=== PATIENT | male | born 1970 | race Caucasian/White ===

== ENCOUNTER 2023-10-31 01:05 | Emergency (ER) | payer MEDICAID ==
[~2023-10-31] VITALS: Ht 170.2 cm; Wt 87.0 kg
[2023-10-31 01:18] VITALS: BP 149/90; PULSE 94; RESP 16; TEMP 98.3; O2SAT 100
== END 2023-10-31 03:16 | disposition left against medical advice (07) ==
LOC: ER 01:05
DX: F10.239 Alcohol dependence with withdrawal, unspecified (principal); E11.9 Type 2 diabetes mellitus without complications; E78.00 Pure hypercholesterolemia, unspecified; I10 Essential (primary) hypertension; R56.9 Unspecified convulsions; Y90.9 Presence of alcohol in blood, level not specified
CPT/HCPCS: 99283

== ENCOUNTER 2024-06-18 08:16 | Inpatient (IN) | payer OTHER ==
[~2024-06-18] VITALS: Ht 170.2 cm; Wt 103.9 kg
[~2024-06-18 08:16] MED LIST: AMLO2.5T45 MT; ATOR10TA MT; METF-416 MT; N325 SL
[2024-06-18 08:21] VITALS: O2SAT 96
[2024-06-18] MEDS: SODIUM CHLORIDE 0.9% 1,000 ML IV ONE (10:15)
[2024-06-18 11:22] LABS: CHLORIDE 101 mEq/L (98-107); SODIUM 137 mEq/L (136-145)
[2024-06-18 11:24] LABS: CALCIUM 9.5 mg/dL (8.7-10.4); CARBON DIOXIDE 27 mEq/L (21-32)
[2024-06-18] MEDS: CHLORDIAZEPOXIDE 25MG CAPSULE PO ONE (11:25)
[2024-06-18 11:29] LABS: CREATININE 0.7 mg/dL (0.6-1.3); GLUCOSE 200 mg/dL (70-105)
[2024-06-18 11:31] LABS: ALANINE AMINOTRANSFERASE 51 IU/L (10-49); ALBUMIN 4.9 g/dL (3.2-4.8); ASPARTATE AMINOTRANSFERASE 40 IU/L (<34); BILIRUBIN TOTAL 0.7 mg/dL (0.1-1.0)
[2024-06-18 11:32] LABS: ETHANOL BLOOD < 10 mg/dL (<10); UREA NITROGEN BLOOD < 5 mg/dL (9-23)
[2024-06-18 11:34] LABS: BASOPHILS % 0.6 % (0.0-2.0); EOSINOPHILS % 1.8 % (0.0-5.0); HEMATOCRIT. 44.9 % (42.0-52.0); HEMOGLOBIN. 15.6 g/dL (14.0-18.0); LYMPHOCYTES % 22.7 % (20.0-50.0); MEAN CORPUSCULAR HEMOGLOBIN 29.7 pg (28.0-32.0); MEAN CORPUSCULAR HGB CONC 34.7 g/dL (31.0-37.0); MEAN CORPUSCULAR VOLUME 85.5 fL (80.0-94.0); MEAN PLATELET VOLUME 9.1 fl (7.4-10.4); MONOCYTES % 7.9 % (2.0-8.0); PLATELET 153 x1000/uL (130-400); RED BLOOD CELL COUNT 5.26 mill/uL (4.7-6.1); RED CELL DISTRIBUTION WIDTH 14.8 % (11.6-14.6); WHITE BLOOD COUNT 6.7 x1000/uL (4.5-11.0)
[2024-06-18 11:37] LABS: POTASSIUM 2.8 mEq/L (3.5-5.1)
[2024-06-18] MEDS: DIAZEPAM 5 MG/ML 2ML SYR IV ONE (13:25)
[2024-06-18] MEDS: FOLIC ACID 1 MG, THIAMINE HCL 100 MG, MVI, ADULT NO.1 10 ML in DEXTROSE 5% WATER 1,000 ML IV ONE (13:38)
[2024-06-18] MEDS ORDERED: IPRATROPIUM/ALBUTEROL 0.5-3(2.5)MG/3ML NEB HHN PRN (18:45)
[2024-06-18] MEDS ORDERED: DIPHENHYDRAMINE 50MG/ML VIAL IV PRN (18:45)
[2024-06-18] MEDS ORDERED: DEXTROSE 50% WATER 50ML SYRINGE IV PRN (18:45)
[2024-06-18] MEDS ORDERED: ONDANSETRON HCL 4MG/2ML INJ IV PRN (18:45)
[2024-06-18] MEDS: POTASSIUM CHLORIDE 20MEQ/PACKET PO NR (19:01)
[2024-06-18 21:00] VITALS: BP 127/83; PULSE 80; RESP 17; TEMP 36.44736; O2SAT 96
[2024-06-18] MEDS: CHLORDIAZEPOXIDE 25MG CAPSULE PO SCH (21:52)
[2024-06-18] MEDS: BLOOD SUGAR DIAGNOSTIC STRIP TEST SCH (21:54)
[2024-06-18] MEDS: INSULIN LISPRO 100 UNITS/ML SUBCUT SCH (21:54)
[2024-06-18 23:14] VITALS: BP 127/83; PULSE 80; RESP 17; TEMP 36.4736
[2024-06-19] VITALS: BP 100/56; PULSE 67; RESP 17; TEMP 36.44736; O2SAT 98
[2024-06-19 04:00] VITALS: BP 122/78; PULSE 67; RESP 67; TEMP 36.3918; O2SAT 17
[2024-06-19 06:25] LABS: CALCIUM 9.3 mg/dL (8.7-10.4); CARBON DIOXIDE 28 mEq/L (21-32); CHLORIDE 102 mEq/L (98-107); SODIUM 138 mEq/L (136-145)
[2024-06-19 06:31] LABS: CREATININE 0.6 mg/dL (0.6-1.3); GLUCOSE 152 mg/dL (70-105)
[2024-06-19 06:33] LABS: BASOPHILS % 0.6 % (0.0-2.0); EOSINOPHILS % 3.5 % (0.0-5.0); HEMATOCRIT. 44.3 % (42.0-52.0); LYMPHOCYTES % 32.6 % (20.0-50.0); MEAN CORPUSCULAR HEMOGLOBIN 29.2 pg (28.0-32.0); MEAN CORPUSCULAR HGB CONC 33.8 g/dL (31.0-37.0); MEAN CORPUSCULAR VOLUME 86.3 fL (80.0-94.0); MEAN PLATELET VOLUME 9.6 fl (7.4-10.4); MONOCYTES % 9.4 % (2.0-8.0); NEUTROPHILS % 53.9 % (40.0-76.0); PLATELET 150 x1000/uL (130-400); RED BLOOD CELL COUNT 5.13 mill/uL (4.7-6.1); RED CELL DISTRIBUTION WIDTH 14.4 % (11.6-14.6); WHITE BLOOD COUNT 5.9 x1000/uL (4.5-11.0)
[2024-06-19 08:00] LABS: POTASSIUM 2.6 mEq/L (3.5-5.1); UREA NITROGEN BLOOD < 5 mg/dL (9-23)
[2024-06-19 08:24] VITALS: BP 98/63; PULSE 70; RESP 20; TEMP 36.83628; O2SAT 93
[2024-06-19] MEDS ORDERED: CHLO25CA11 MT (10:17)
[2024-06-19] MEDS ORDERED: THIA100T88 MT (10:17)
[2024-06-19] MEDS ORDERED: FOLI-43 MT (10:17)
[2024-06-19] MEDS ORDERED: MULT-230 MT (10:17)
[2024-06-19] MEDS: POTASSIUM CHLORIDE 20MEQ TABLET SR PO SCH (10:38)
[2024-06-19] MEDS ORDERED: POTA-354 MT (10:41)
[2024-06-19] MEDS: LORAZEPAM 2MG/ML INJ IV PRN (10:52)
[2024-06-19] MEDS: KCL 20MEQ/100ML PREMIX 100 ML IV SCH (10:53)
[2024-06-19] MEDS ORDERED: MAGNESIUM 2 G PREMIX 50 ML IV NR (11:00)
[2024-06-19 12:03] VITALS: BP 126/81; PULSE 78; RESP 20; TEMP 37.00296; O2SAT 95
[2024-06-19] MEDS ORDERED: FOLIC ACID 1 MG, THIAMINE HCL 100 MG, MVI, ADULT NO.1 10 ML in DEXTROSE 5% WATER 1,000 ML IV SCH (15:00)
== END 2024-06-19 13:35 | disposition left against medical advice (07) | DRG 425 ==
LOC: ER 08:18 → 5WST 13:38 → EDBEDREQ 13:41 → 7WST 20:13
PROVIDERS: ADMIT Internal Medicine; ATTEND Internal Medicine
DX: E87.6 Hypokalemia (principal); I11.0 Hypertensive heart disease with heart failure; I50.9 Heart failure, unspecified; E11.9 Type 2 diabetes mellitus without complications; Z53.29 Procedure and treatment not carried out because of patient's decision for other reasons; F10.239 Alcohol dependence with withdrawal, unspecified; E78.00 Pure hypercholesterolemia, unspecified; Z88.6 Allergy status to analgesic agent; Z88.8 Allergy status to other drugs, medicaments and biological substances; Z79.899 Other long term (current) drug therapy
CPT/HCPCS: 36415; 80048; 80053; 80320; 82962; 83036; 85025; 99285; J1815; J2060; J3411; J3475; J3480; J3490; J7030; J7070; G0480

== ENCOUNTER 2024-08-02 20:59 | Emergency (ER) | payer MEDICAID, OTHER ==
[~2024-08-02] VITALS: Ht 165.1 cm; Wt 104.0 kg
[~2024-08-02 20:59] MED LIST changes: +CHLO25CA11 MT; +FOLI-43 MT; +MULT-230 MT; +POTA-354 MT; +THIA100T88 MT
[2024-08-02 21:10] VITALS: O2SAT 97
[2024-08-02] MEDS ORDERED: OXYCODONE HCL/ACETAMINOPHEN 5/325MG TABLET PO ONE (21:45)
[2024-08-02 22:35] LABS: BASOPHILS % 0.7 % (0.0-2.0); EOSINOPHILS % 1.3 % (0.0-5.0); HEMATOCRIT. 48.6 % (42.0-52.0); HEMOGLOBIN. 16.9 g/dL (14.0-18.0); LYMPHOCYTES % 30.5 % (20.0-50.0); MEAN CORPUSCULAR HEMOGLOBIN 29.9 pg (28.0-32.0); MEAN CORPUSCULAR HGB CONC 34.7 g/dL (31.0-37.0); MEAN CORPUSCULAR VOLUME 86.2 fL (80.0-94.0); MEAN PLATELET VOLUME 8.7 fl (7.4-10.4); MONOCYTES % 9.5 % (2.0-8.0); PLATELET 153 x1000/uL (130-400); RED BLOOD CELL COUNT 5.63 mill/uL (4.7-6.1); RED CELL DISTRIBUTION WIDTH 14.1 % (11.6-14.6)
[2024-08-02 22:40] LABS: CHLORIDE 102 mEq/L (98-107); POTASSIUM 3.3 mEq/L (3.5-5.1); SODIUM 139 mEq/L (136-145)
[2024-08-02 22:41] LABS: CARBON DIOXIDE 27 mEq/L (21-32)
[2024-08-02 22:42] LABS: CALCIUM 9.3 mg/dL (8.7-10.4)
[2024-08-02 22:46] LABS: CREATININE 0.7 mg/dL (0.6-1.3); GLUCOSE 143 mg/dL (70-105); UREA NITROGEN BLOOD 5 mg/dL (9-23)
[2024-08-02] MEDS ORDERED: DIAZEPAM 5 MG/ML 2ML SYR IV ONE (23:00)
[2024-08-02] MEDS: DIAZEPAM 5 MG/ML 2ML SYR IV NR (23:25)
[2024-08-02] MEDS ORDERED: FOLI-43 MT (23:39)
[2024-08-02] MEDS ORDERED: AMLO5TAB88 MT (23:39)
[2024-08-02] MEDS ORDERED: THIA100T88 MT (23:39)
[2024-08-02] MEDS ORDERED: POTA-354 MT (23:39)
[2024-08-02] MEDS ORDERED: LORA-250 MT (23:39)
[2024-08-03 00:13] VITALS: BP 123/77; PULSE 82; RESP 17; TEMP 36.83628; O2SAT 99
== END 2024-08-03 00:23 | disposition home or self-care (01) ==
LOC: ER 20:59
DX: I11.0 Hypertensive heart disease with heart failure (principal); I50.9 Heart failure, unspecified; E78.00 Pure hypercholesterolemia, unspecified; E11.9 Type 2 diabetes mellitus without complications; Z79.84 Long term (current) use of oral hypoglycemic drugs; Z79.899 Other long term (current) drug therapy; Z88.5 Allergy status to narcotic agent
CPT/HCPCS: 80048; 83880; 85025; 36415; 71045; 93005; 96374; 99285; J3360; Z7610 ×2

== ENCOUNTER 2024-12-22 00:53 | Emergency (ER) | payer MEDICAID ==
[~2024-12-22 00:53] MED LIST changes: +AMLO5TAB88 MT; +LORA-250 MT
[2024-12-22 00:59] VITALS: PULSE 101; O2SAT 98
== END 2024-12-22 01:15 | disposition left against medical advice (07) ==
LOC: ER 00:53
DX: R21 Rash and other nonspecific skin eruption (principal); Z53.21 Procedure and treatment not carried out due to patient leaving prior to being seen by health care provider

== ENCOUNTER 2025-08-29 11:02 | Inpatient (IN) | payer MEDICAID ==
[~2025-08-29] VITALS: Ht 165.1 cm; Wt 109.8 kg
[2025-08-29 11:05] VITALS: O2SAT 97
[2025-08-29] MEDS: LEVETIRACETAM 500MG TABLET PO ONE (13:30)
[2025-08-29 14:45] LABS: BASOPHILS % 0.6 % (0.0-2.0); EOSINOPHILS % 0.5 % (0.0-5.0); HEMATOCRIT. 43.7 % (42.0-52.0); HEMOGLOBIN. 14.6 g/dL (14.0-18.0); LYMPHOCYTES % 22.6 % (20.0-50.0); MEAN PLATELET VOLUME 8.9 fl (7.4-10.4); MONOCYTES % 6.8 % (2.0-8.0); NEUTROPHILS % 69.5 % (40.0-76.0); PLATELET 173 x1000/uL (130-400); RED BLOOD CELL COUNT 4.94 mill/uL (4.7-6.1); RED CELL DISTRIBUTION WIDTH 13.7 % (11.6-14.6)
[2025-08-29 14:56] LABS: INR 1.1
[2025-08-29 14:58] LABS: CREATININE 0.7 mg/dL (0.6-1.3)
[2025-08-29 14:59] LABS: UREA NITROGEN BLOOD < 5 mg/dL (9-23)
[2025-08-29 15:00] LABS: ASPARTATE AMINOTRANSFERASE 37 IU/L (<34)
[2025-08-29 15:01] LABS: BILIRUBIN DIRECT 0.2 mg/dL (<=3.0); BILIRUBIN TOTAL 0.4 mg/dL (0.1-1.0); PROTEIN TOTAL 7.3 g/dL (6.0-8.3)
[2025-08-29 15:06] LABS: TROPONIN I HIGH SENSITIVITY 58 ng/L (3.0-53)
[2025-08-29] MEDS ORDERED: DOCUSATE SODIUM 100MG CAPSULE PO PRN (17:15)
[2025-08-29] MEDS ORDERED: ONDANSETRON HCL 4MG/2ML INJ IV PRN (17:15)
[2025-08-29] MEDS ORDERED: NITROGLYCERIN 0.4MG TABLET SL SL PRN (17:15)
[2025-08-29] MEDS ORDERED: DEXTROSE 50% WATER 50ML SYRINGE IV PRN (17:15)
[2025-08-29] MEDS ORDERED: KETOROLAC 15MG/ML VIAL IV PRN (17:15)
[2025-08-29] MEDS ORDERED: CLONIDINE 0.1MG TABLET PO PRN (17:15)
[2025-08-29] MEDS ORDERED: IPRATROPIUM/ALBUTEROL 0.5-3(2.5)MG/3ML NEB HHN PRN (17:15)
[2025-08-29] MEDS ORDERED: GUAIFENESIN 200MG/10ML SUGAR FREE UDC PO PRN (17:15)
[2025-08-29] MEDS: INSULIN LISPRO 100 UNITS/ML SUBCUT SCH (17:43)
[2025-08-29 17:53] LABS: TROPONIN I HIGH SENSITIVITY 59 ng/L (3.0-53)
[2025-08-29 17:57] LABS: ETHANOL BLOOD 205 mg/dL (<10); TRIGLYCERIDE 113 mg/dL (0-150)
[2025-08-29 17:58] LABS: LDL CHOLESTEROL 50 mg/dL (5-100)
[2025-08-29 17:59] LABS: PHOSPHORUS 3.6 mg/dL (2.5-4.9)
[2025-08-29] MEDS: POTASSIUM CHLORIDE 20MEQ TABLET SR PO NR (18:29)
[2025-08-29] MEDS: MULTIVITAMINS,THER W-MINERALS TABLET PO SCH (18:29)
[2025-08-29] MEDS: THIAMINE HCL 100 MG/1 ML 2ML VIAL IM SCH (18:30)
[2025-08-29] MEDS: ASPIRIN 325MG TABLET PO NR (18:30)
[2025-08-29] MEDS: KCL 20MEQ/100ML PREMIX 100 ML IV SCH (18:30)
[2025-08-29] MEDS: FOLIC ACID 1MG TABLET PO SCH (18:32)
[2025-08-29 20:00] VITALS: BP 132/96; PULSE 74; RESP 18; TEMP 36.5; O2SAT 98
[2025-08-29] MEDS: LORAZEPAM 1MG TABLET PO PRN (20:13)
[2025-08-29] MEDS: ATORVASTATIN CALCIUM 40MG TABLET PO SCH (20:13)
[2025-08-29 20:30] VITALS: BP 132/96; PULSE 74; RESP 18; TEMP 36.5292
[2025-08-29] MEDS: BLOOD SUGAR DIAGNOSTIC STRIP TEST SCH (21:32)
[2025-08-29] MEDS: LEVETIRACETAM 1000MG PREMIX 100 ML IV SCH (22:09)
[2025-08-30] VITALS: BP 112/60; PULSE 78; RESP 18; TEMP 36.3; O2SAT 98
[2025-08-30] MEDS: KCL 20MEQ/100ML PREMIX 100 ML IV SCH (01:16)
[2025-08-30 02:18] LABS: TROPONIN I HIGH SENSITIVITY 60 ng/L (3.0-53)
[2025-08-30] MEDS: MVI, ADULT NO.1 10 ML, THIAMINE HCL 100 MG, FOLIC ACID 1 MG in SODIUM CHLORIDE 0.9% 1,0... IV SCH (03:09)
[2025-08-30 04:00] VITALS: BP 124/66; PULSE 74; RESP 19; TEMP 36.4; O2SAT 98
[2025-08-30 07:28] LABS: BASOPHILS % 0.7 % (0.0-2.0); EOSINOPHILS % 2.1 % (0.0-5.0); HEMATOCRIT. 42.4 % (42.0-52.0); HEMOGLOBIN. 14.0 g/dL (14.0-18.0); LYMPHOCYTES % 25.7 % (20.0-50.0); MEAN PLATELET VOLUME 9.0 fl (7.4-10.4); MONOCYTES % 8.6 % (2.0-8.0); NEUTROPHILS % 62.9 % (40.0-76.0); PLATELET 167 x1000/uL (130-400); RED BLOOD CELL COUNT 4.80 mill/uL (4.7-6.1); RED CELL DISTRIBUTION WIDTH 13.9 % (11.6-14.6)
[2025-08-30 07:30] LABS: CREATININE 0.5 mg/dL (0.6-1.3); UREA NITROGEN BLOOD 6 mg/dL (9-23)
[2025-08-30 07:31] LABS: T4 FREE 0.91 ng/dL (0.89-1.76)
[2025-08-30 07:32] LABS: PHOSPHORUS 2.9 mg/dL (2.5-4.9)
[2025-08-30 08:00] VITALS: BP 128/87; PULSE 74; RESP 18; TEMP 36.4; O2SAT 97
[2025-08-30] MEDS: ENOXAPARIN 30MG/0.3ML SYR SUBCUT SCH (09:22)
[2025-08-30] MEDS: FAMOTIDINE 20MG/2ML VIAL IV SCH (09:23)
[2025-08-30] MEDS: POTASSIUM CHLORIDE 20MEQ TABLET SR PO SCH (10:27)
[2025-08-30 12:00] VITALS: BP 101/60; PULSE 100; RESP 19; TEMP 36.5; O2SAT 96
[2025-08-30 16:00] VITALS: BP 127/83; PULSE 72; RESP 19; TEMP 36.6; O2SAT 97
[2025-08-30] MEDS: ACETAMINOPHEN 325MG TABLET PO PRN (17:24)
[2025-08-30] MEDS: CHLORDIAZEPOXIDE 25MG CAPSULE PO PRN (18:10)
[2025-08-30 20:00] VITALS: BP 100/46; PULSE 73; RESP 18; TEMP 37.1; O2SAT 95
[2025-08-31] VITALS: BP 108/57; PULSE 62; RESP 19; TEMP 37; O2SAT 95
[2025-08-31 04:00] VITALS: BP 110/58; PULSE 63; RESP 18; TEMP 36.8; O2SAT 95
[2025-08-31 08:08] VITALS: BP 118/60; PULSE 64; RESP 18; TEMP 36.4; O2SAT 98
[2025-08-31 09:09] LABS: BASOPHILS % 0.9 % (0.0-2.0); EOSINOPHILS % 2.7 % (0.0-5.0); HEMATOCRIT. 44.3 % (42.0-52.0); HEMOGLOBIN. 14.6 g/dL (14.0-18.0); LYMPHOCYTES % 35.3 % (20.0-50.0); MEAN PLATELET VOLUME 9.3 fl (7.4-10.4); MONOCYTES % 8.7 % (2.0-8.0); NEUTROPHILS % 52.4 % (40.0-76.0); PLATELET 160 x1000/uL (130-400); RED BLOOD CELL COUNT 4.97 mill/uL (4.7-6.1); RED CELL DISTRIBUTION WIDTH 14.0 % (11.6-14.6)
[2025-08-31 09:27] LABS: CREATININE 0.5 mg/dL (0.6-1.3); UREA NITROGEN BLOOD < 5 mg/dL (9-23)
[2025-08-31 09:28] LABS: TROPONIN I HIGH SENSITIVITY 59 ng/L (3.0-53)
[2025-08-31] MEDS ORDERED: THIA100T88 MT (11:24)
[2025-08-31] MEDS ORDERED: EMPA10TA PO (11:24)
[2025-08-31] MEDS ORDERED: AMLO10TA80 PO (11:24)
[2025-08-31] MEDS ORDERED: FAMO20TA8 PO (11:24)
[2025-08-31] MEDS ORDERED: FOLI-43 MT (11:24)
[2025-08-31] MEDS ORDERED: MAGN400T26 PO (11:24)
[2025-08-31] MEDS ORDERED: POTA-204 PO (11:24)
[2025-08-31] MEDS ORDERED: FURO-151 PO (11:24)
[2025-08-31] MEDS ORDERED: LIP40 PO (11:24)
[2025-08-31 12:06] VITALS: BP 160/78; PULSE 80; RESP 18; TEMP 36.8; O2SAT 96
[2025-08-31 13:03] VITALS: BP 150/78; PULSE 80; RESP 18; TEMP 98.2
[2025-09-01] MEDS ORDERED: THIAMINE HCL 100MG TABLET PO SCH (09:00)
== END 2025-08-31 15:45 | disposition home or self-care (01) | DRG 241 ==
LOC: ER 11:02 → EDBEDREQTM 16:59 → EDBEDREQ 16:59 → ENRESERV 17:10 → 8WST 17:43
PROVIDERS: ADMIT Internal Medicine; ATTEND Internal Medicine
DX: K29.20 Alcoholic gastritis without bleeding (principal); I21.A1 Myocardial infarction type 2; S09.90XA Unspecified injury of head, initial encounter; E11.9 Type 2 diabetes mellitus without complications; I11.0 Hypertensive heart disease with heart failure; E66.9 Obesity, unspecified; G40.909 Epilepsy, unspecified, not intractable, without status epilepticus; F10.239 Alcohol dependence with withdrawal, unspecified; R07.89 Other chest pain; E87.6 Hypokalemia; E78.00 Pure hypercholesterolemia, unspecified; Y90.7 Blood alcohol level of 200-239 mg/100 ml; I50.9 Heart failure, unspecified; F10.229 Alcohol dependence with intoxication, unspecified; Z79.899 Other long term (current) drug therapy; Z59.00 Homelessness unspecified; Z79.84 Long term (current) use of oral hypoglycemic drugs; Z88.5 Allergy status to narcotic agent; Z68.41 Body mass index [BMI] 40.0-44.9, adult; Y08.89XA Assault by other specified means, initial encounter; Y93.89 Activity, other specified; Y92.89 Other specified places as the place of occurrence of the external cause; Y99.8 Other external cause status
CPT/HCPCS: 36415; 70486; 71045; 72170; 73130; 73562; 80048; 80061; 80076; 80320; 82140; 82550; 82962; 83036; 83735; 83880; 84100; 84439; 84443; 84484; 85025; 93005; 93970; 99285; A4606; J1308; J1650; J1815; J1953; J3411; J3480; J3490; J7030; G0480